=== PATIENT | female | born 1995 | race Hispanic/Latino ===

== ENCOUNTER → 2023-08-05 | Emergency (ER) | payer BC ==
[~2023-08-05] VITALS: Ht 160 cm; Wt 100.7 kg
[~2023-08-05] MED LIST: FAMOTIDINE 20MG VIAL IV STA; ONDANSETRON 4MG INJ IVP STA
[2023-08-05 19:06] VITALS: BP 116/74; PULSE 95; RESP 20
== END ==
LOC: EDH 18:55
DX: R10.13 Epigastric pain (principal); R11.2 Nausea with vomiting, unspecified
CPT/HCPCS: 99281